=== PATIENT | female | born 1955 | race Caucasian/White ===

== ENCOUNTER → 2020-03-27 16:42 | Outpatient (CLI) | payer OTHER, SELFPAY ==
--- NOTE | ~2020-03-27 | MM_ITS ---
EXAMINATION: MM screening [facility] BI w jimmy HISTORY: Screening mammogram TECHNIQUE: Craniocaudal and mediolateral oblique 3-D tomosynthesis images were obtained and synthetic 2-D images were generated. CAD analysis was submitted and interpreted. COMPARISON: 12/28/2018, 02/19/2011 bilateral digital screening mammogram examinations BREAST PARENCHYMAL COMPOSITION: The breasts are heterogeneously dense, which may obscure small masses . FINDINGS: Questionable new approximately 3.5 mm opacity versus composite shadowing in the inferior nieves bareolar area of the right breast on MLO view; recommend diagnostic right mammogram, with ultrasound if required.. Otherwise there is no evidence of suspicious mass, calcification, or architectural distortion to sugg est malignancy in either breast. There has been no suspicious interval change. IMPRESSION: 1. Questionable 3.5 mm mass overlying inferior subareolar area of right breast on MLO view 2. Diagnostic right mammogram is recommended, with ultrasound if required BI-RADS Category 0: Incomplete: Needs additional imaging evaluation. Reviewed, dictated and finalized at location A.
== END ==
PROVIDERS: PCP Internal Medicine; Visit Provider Obstetrics & Gynecology
DX: Z12.31 Encounter for screening mammogram for malignant neoplasm of breast (principal); R92.8 Other abnormal and inconclusive findings on diagnostic imaging of breast
CPT/HCPCS: 77063; 77067

== ENCOUNTER → 2020-04-12 08:49 | Outpatient (CLI) | payer OTHER, SELFPAY ==
--- NOTE | ~2020-04-12 | MMUS_ITS ---
EXAMINATION: MM diagnostic mammo unilat RT, US breast RT complete HISTORY: Follow-up right breast asymmetry TECHNIQUE: Additional 3-D tomosynthesis images of the right breast were performed and synthetic 2-D i mages were generated. CAD analysis was submitted and interpreted. High resolution right breast ultras ound was performed. COMPARISON: 03/27/2020 BREAST PARENCHYMAL COMPOSITION: The breasts are heterogenously dense, which may obscure small masses. FINDINGS: MAMMOGRAPHIC FINDINGS: The focal area of asymmetry is not apparent with spot compression views, likely superimposed fibrogla ndular tissue. No discrete mass, architectural distortion or suspicious calcifications. ULTRASOUND: Normal heterogeneous echotexture without focal solid or cystic mass. IMPRESSION: 1. No mammographic or sonographic evidence for malignancy in the right breast. 2. Routine yearly screening mammogram and regular clinical breast examination are recommended. BI-RADS Category 1: Negative Reviewed, dictated and finalized at location A. 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 No mammographic or sonographic evidence for malignancy in the right breast. 2. Routine yearly screening mammogram and regular clinical breast examination a re recommended. BI-RADS Category 1: Negative
== END ==
PROVIDERS: PCP Internal Medicine; Visit Provider Obstetrics & Gynecology
DX: R92.8 Other abnormal and inconclusive findings on diagnostic imaging of breast (principal)
CPT/HCPCS: 76641; 77065

== ENCOUNTER → 2021-05-15 13:46 | Outpatient (CLI) | payer OTHER, SELFPAY ==
--- NOTE | ~2021-05-15 | MM_ITS ---
EXAMINATION: MM screening [facility] BI w jimmy HISTORY: Screening TECHNIQUE: Craniocaudal and mediolateral oblique 3-D tomosynthesis images were obtained and synthetic 2-D images were generated. CAD analysis was submitted and interpreted. COMPARISON: Comparison to multiple prior studies sequentially, with oldest reviewed study dated 12/28. BREAST PARENCHYMAL COMPOSITION: Breast composed of scattered areas of fibroglandular density FINDINGS: There is no evidence of suspicious mass, calcification, or architectural distortion to sugg est malignancy in either breast. There has been no suspicious interval change. IMPRESSION: 1. No mammographic evidence of malignancy. 2. Recommend routine screening mammography in one year. BI-RADS Category 1: Negative.. Reviewed, dictated and finalized at location A. 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
== END ==
PROVIDERS: PCP Internal Medicine; Visit Provider Obstetrics & Gynecology
DX: Z12.31 Encounter for screening mammogram for malignant neoplasm of breast (principal)
CPT/HCPCS: 77063; 77067

== ENCOUNTER 2022-01-06 10:14 | Emergency (ER) | payer OTHER, SELFPAY ==
--- NOTE | ~2022-01-06 | XR_ITS ---
EXAMINATION: XR foot RT min 3V DATE: 01/06/2022 10:29 INDICATION: Lateral sided right foot pain and swelling post fall down stairs TECHNIQUE: Dorsoplantar, two oblique and lateral views of the right foot were obtained. COMPARISON: None. FINDINGS: Minimally displaced transverse fracture across the base of the right fifth metatarsal with up to 2 mm maximal separation along the fracture plane. The fractures likely intra-articular extending towards the junction of the articular surfaces of the fifth tarsal metatarsal joint and the articulation with the base of the fourth metatarsal. Alignment remains essentially anatomic. No other fractures identi fied. 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 Small plan tar calcaneal spur. Soft tissue swelling at the lateral midfoot overlying the fracture. IMPRESSION: 1. Minimally displaced likely intra-articular fracture at the base of the right fifth metatarsal. Reviewed, dictated and finalized at location A.
[2022-01-06 10:34] VITALS: BP 123/65; PULSE 74; RESP 20; TEMP 36.6; O2SAT 100
--- NOTE | 2022-01-06 11:32 | ED.LOWEXIN ---
HPI - Extremity Injury (Lower) General Chief Complaint: Extremity Injury, Lower Stated Complaint: right foot injury Time Seen by Provider: 01/06/22 10:59 Source: patient Mode of arrival: wheelchair Limitations: no limitations History of Present Illness HPI Narrative: This is a 66-year-old female that presents to the emergency department for right foot pain after an injury just prior to arrival. Reports she tripped going down the stairs and rolled the foot. Reports pain and swelling at the lateral aspect of the right foot. Denies any other injuries or trauma. Denies decreased range of motion or numbness. Related Data Allergies Allergy/AdvReac Type Severity Reaction Status Date / Time No Known Allergies Allergy Unverified 07/23/18 08:37 Review of Systems Review of Systems: CONSTITUTIONAL: Denies fever MUSCULOSKELETAL: Reports joint pain, and myalgia. NEUROLOGIC: Denies numbness All systems reviewed & are unremarkable except as noted in HPI and below PMFSH Past Medical History Medical History (Updated 01/06/22 @ 12:38 by Tori Saldana PA-C) History of depression Social History Social History (Updated 01/06/22 @ 11:33 by Tori Saldana PA-C) Substance use: never Exam Narrative: GENERAL: Well-appearing, well-nourished, and in no acute distress. HEAD: Normocephalic, atraumatic. EYES: EOMI. EXTREMITIES: Normal range of motion. Mild edema about the right foot over the fifth metatarsal. Normal DP pulse. Normal sensation SKIN: Warm, dry, no rash. NEURO: No focal deficits. Alert and oriented x3. PSYCH: Normal mood and affect Course Consultations Consultation #1: Spoke with Dr. Moncada about patient and work-up. Date: 01/06/22 Vital Signs Vital signs: Vital Signs Temperature 97.8 F 01/06/22 10:34 Pulse Rate 74 01/06/22 10:34 Respiratory Rate 20 01/06/22 10:34 Blood Pressure 123/65 01/06/22 10:34 Pulse Oximetry 100 01/06/22 10:34 Oxygen Delivery Room Air 01/06/22 10:34 Temperature 97.8 F 01/06/22 10:34 Pulse Rate 74 01/06/22 10:34 Respiratory Rate 20 01/06/22 10:34 Blood Pressure 123/65 01/06/22 10:34 Pulse Oximetry 100 01/06/22 10:34 Oxygen Delivery Room Air 01/06/22 10:34 Procedures Orthopedic Splinting/Casting Injury #1: Splinting/Casting Date: 01/06/22 Splinting/Casting Time: 12:35 Side: right Lower Extremity Injury Location: foot Lower Extremity Immobilizer: posterior splint Splint: customized in ED OCL: short leg Pre-Procedure Neuro Vascular Exam: normal Post-Procedure Neuro Vascular Exam: normal MDM - Extremity Injury (Lower) MDM Narrative Medical decision making narrative: Patient presents to the emergency department for right foot pain after an injury this morning. Patient is neurovascularly intact. Right foot x-ray shows a minimally displaced likely intra-articular fracture at the base of the right fifth metatarsal. Spoke with Dr. Moncada about patient and work-up. Patient will be placed in short leg posterior, she has crutches at home. Is to follow-up in clinic. Patient is stable and felt appropriate for further outpatient evaluation. She was given warnings to return to the ER Imaging Data Radiologist's impression: ITS Impressions Foot X-Ray 01/06/22 10:32 IMPRESSION: 1. Minimally displaced likely intra-articular fracture at the base of the right fifth metatarsal. Critical Care Time Critical Care Time Critical Care Time: No Discharge Plan Discharge Clinical Impression: Closed nondisplaced fracture of fifth right metatarsal bone Qualifiers: Encounter type: initial encounter Qualified Code(s): S92.354A - Nondisplaced fracture of fifth metatarsal bone, right foot, initial encounter for closed fracture Patient Disposition: Home, Self-Care Condition: Stable Instructions: Foot Fracture in Adults (ED) Additional Instructions: Return
[2022-01-06] MEDS: HYDROcodone/acetaminophen (*CRX) 5-325 MG TABLET 1 TAB PO (11:46)
[2022-01-06 13:00] VITALS: BP 132/62; PULSE 68; RESP 14; O2SAT 99
== END 2022-01-06 13:00 | disposition home or self-care (01) ==
PROVIDERS: Emergency Provider Emergency Medicine; PCP Internal Medicine
DX: S92.351A Displaced fracture of fifth metatarsal bone, right foot, initial encounter for closed fracture (principal); W10.9XXA Fall (on) (from) unspecified stairs and steps, initial encounter
CPT/HCPCS: 29515; 73630; 99284; A9270

== ENCOUNTER → 2022-09-09 12:10 | Outpatient (CLI) | payer OTHER, SELFPAY ==
--- NOTE | ~2022-09-09 | MM_ITS ---
EXAMINATION: MM screening [facility] BI w jimmy HISTORY: Screening mammogram TECHNIQUE: Craniocaudal and mediolateral oblique 3-D tomosynthesis images were obtained and synthetic 2-D images were generated. CAD analysis was submitted and interpreted. COMPARISON: 05/15/2021 bilateral screening mammogram 04/12/2020 diagnostic right mammogram and complete right breast ultrasound examination 03/27/2020, 12/28/2018, 02/19/2011 bilateral screening mammogram examinations BREAST PARENCHYMAL COMPOSITION: The breasts are heterogeneously dense, which may obscure small masses . FINDINGS: Stable appearing bilateral axillary and axillary tail lymph nodes. There is no evidence of suspicious mass, calcification, or architectural distortion to suggest malignancy in either breast. T here has been no suspicious interval change. IMPRESSION: 1. No mammographic evidence of malignancy. 2. Recommend routine screening mammography in one year. BI-RADS Category 1: Negative Reviewed, dictated and finalized at location A.
== END ==
PROVIDERS: PCP Internal Medicine; Visit Provider Nurse Practitioner
DX: Z12.31 Encounter for screening mammogram for malignant neoplasm of breast (principal)
CPT/HCPCS: 77063; 77067

== ENCOUNTER → 2022-11-13 10:01 | Outpatient (CLI) | payer OTHER, SELFPAY ==
--- NOTE | ~2022-11-13 | DEXA_ITS ---
Bone Density Report Name: ALEXIA KRUEGER Age: 67 Sex: Female Ethnicity: White Date of : 1955 Indication: osteopenia; postmenopausal Referring Provider: JOSE LUIS, ELLE Study: Bone densitometry was performed. Exam Date: November 13, 2022 Accession number: [id number] Bone Density: Region BMD T-score Z-score Classification AP Spine (L1-L4) 0.853 -1.8 0.0 Osteopenia Femoral Neck (Left) 0.745 -0.9 0.6 Normal Total Hip (Left) 0.951 0.1 1.3 Normal Femoral Neck (Right) 0.712 -1.2 0.3 Osteopenia Total Hip (Right) 0.910 -0.3 1.0 Normal Total Hip Mean 0.931 -0.1 1.2 Normal World Health Organization criteria for BMD impression classify patients as: Normal (T-score at or above -1.0), Osteopenia (T-score between -1.0 and -2.5), or Osteoporosis (T-score at or below -2.5). 10-year Fracture Risk(1): Major Osteoporotic Fracture 8.3% Hip Fracture 0.7% Reported Risk Factors: [place] (), Neck BMD=0.712, BMI=26.3 (1) FRAX(R) Version 3.08. Fracture probability calculated for an untreated patient. Fracture probability may be lower if the patient has received treatment. Previous Exams: Region Exam Age BMD T-score BMD Change BMD Change Date g/cm2 vs Baseline vs Previous AP Spine(L1-L4) 11/13/2022 67 0.853 -1.8 -0.177 -0.005 12/28/2018 63 0.858 -1.7 -0.172 -0.172 05/12/2008 52 1.030 -0.2 Total Hip(Left) 11/13/2022 67 0.951 0.1 -0.068 -0.003 12/28/2018 63 0.954 0.1 -0.065 -0.065 05/12/2008 52 1.019 0.6 Total Hip(Right) 11/13/2022 67 0.910 -0.3 -0.071 -0.022 12/28/2018 63 0.932 -0.1 -0.048 -0.048 05/12/2008 52 0.980 0.3 *Denotes significance at 95% confidence level, LSC for AP Spine = 0.022 g/cm2, LSC for Total Hip = 0.027 g/cm2 Clinical Information Provided by Patient: Has used the following medications: Vitamin D, Calcium Patient maximum height was 62.25 Menopause Age: 52 Does not regularly consume dairy products Drinks caffeinated beverages Onset of menses at age 16 Number of children 0 Impression: The patient has low bone mass, based on the Total Spine T-score. The patient has an estimated ten-year risk of hip fracture of 0.7% and an estimated ten-year risk of major fracture of 8.3%, based on the WHO FRAX algorithm. No significant bone loss was observed. Discussion: BONE DENS
== END ==
PROVIDERS: PCP Internal Medicine; Visit Provider Nurse Practitioner
DX: M85.88 Other specified disorders of bone density and structure, other site (principal); M85.851 Other specified disorders of bone density and structure, right thigh
CPT/HCPCS: 77080

== ENCOUNTER 2024-05-11 14:40 | Outpatient (CLI) | payer OTHER, SELFPAY ==
--- NOTE | ~2024-05-11 | MM_ITS ---
EXAMINATION: MM screening [facility] BI w jimmy HISTORY: Screening TECHNIQUE: Craniocaudal and mediolateral oblique 3-D tomosynthesis images were obtained and synthetic 2-D images were generated. CAD analysis was submitted and interpreted. COMPARISON: Comparison to multiple prior studies sequentially, with oldest reviewed study dated 12/28. BREAST PARENCHYMAL COMPOSITION: Not dense: There are scattered areas of fibroglandular density. FINDINGS: There is no evidence of suspicious mass, calcification, or architectural distortion to sugg est malignancy in either breast. There has been no suspicious interval change. IMPRESSION: 1. No mammographic evidence of malignancy. 2. Recommend routine screening mammography in one year. BI-RADS Category 1: Negative Reviewed, dictated and finalized at location B. 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
== END 2024-05-11 14:41 | disposition home or self-care (01) ==
LOC: MICIMG 14:41
PROVIDERS: PCP Obstetrics & Gynecology Gynecology; Visit Provider Internal Medicine
DX: Z12.31 Encounter for screening mammogram for malignant neoplasm of breast (principal)
CPT/HCPCS: 77063; 77067

== ENCOUNTER 2024-08-24 08:39 | Outpatient (CLI) | payer OTHER, SELFPAY ==
--- NOTE | ~2024-08-24 | XR_ITS ---
XR shoulder LT min 2V Ordering provider: Preet Moncada MD History: . M25.512 - Pain in left shoulder . Comparison: None. FINDINGS: BONES: No acute fracture or dislocation. JOINT SPACES: The acromioclavicular joint is normal. The glenohumeral joint is normal. SOFT TISSUES: Normal. IMPRESSION: No acute osseous abnormality left shoulder. Reviewed, dictated and finalized at location A.
== END 2024-08-24 08:40 | disposition home or self-care (01) ==
PROVIDERS: PCP Nurse Practitioner Family; Visit Provider Orthopaedic Surgery
DX: M25.512 Pain in left shoulder (principal)
CPT/HCPCS: 73030

== ENCOUNTER 2025-03-21 01:10 | Day surgery (SDC) | payer OTHER, SELFPAY ==
--- OUTSIDE RECORDS SUMMARY | 2013-03-16 08:00 | XMS_ITS | Continuity of Care Document ---
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 Name Role Phone Siddhartha Hinds MD Unavailable Unavailable Allergies, Adverse Reactions, Alerts Substance Reaction Status Criticality No Known allergies Medications Medication Instructions Dosage Effective Dates (start - stop) Status Comments Restasis 0.05 % Eye Dropperette instill 1 drop by ophthalmic route every 12 hours into affected eye(s) 1.00 drop - Active doxycycline monohydrate 50 mg capsule take 1 capsule (50MG) by oral route every 12 hours 50 MG - Active Artificial Tears Eye Drops - Active Procedures Procedure Date Office/outpatient Visit, Est Office/outpatient Visit, Est Eye Exam, New Patient Advance Directives Directive Yes / No Effective Date File Name Resuscitation Not Answered N/A N/A Life Support Not Answered N/A N/A Intubation Not Answered N/A N/A Antibiotics Not Answered N/A N/A IV Fluid Support Not Answered N/A N/A Tube Feed Not Answered N/A N/A Other Directive N/A N/A WARNING:The information contained in this section is historical and is provided for information only and does not constitute a legal document or any assurance that the information is still accurate. Please verify the information with the morales of the legal document before using it for clinical purposes. Encounters Encounter Description Practice Location Reason(s) For Visit Diagnoses Date Provider Providers Copied on Encounter Office[facility]pa tient [facility], [facility] [address] [place] [address] [address], [place], [place], [id number], tel:[phone] [place] Professional ROSACEATEAR FILM INSUFFIC NOS 3 Guzman Carl. [address], [address], [place], [place], [id number], . tel:[phone] Referring Provider: Siddhartha Sagastume, [address], [place], [address] . tel:[phone] Office/outpa tient Visit, Est [facility], [id number] [place] [address] [address], [place], [place], [id number], tel:[phone] SEC [place] Professional CUPPING OF OPTIC DISCROSACEATEA R FILM INSUFFIC NOSPOST-PROC ST EYE/ADN NEC 3 Guzman Carl. [address], [facility], [place], [place], [id number], . tel:[phone] Referring Provider: Siddhartha Sagastume, [address], [place], [address] . tel:[phone] [facility], [address], [place], [place], [id number], tel:[phone] SEC [place] Professional ROSACEACUPPING OF OPTIC DISCLATTICE DEGENERATION 3 Ortizjustin Siddhartha. [address], [place], [place], [address], . tel:[phone] Referring Provider: Siddhartha Sagastume, [address], [place], [address] . tel:[phone] Family History Family Member Type Diagnosis Age At Onset Mother Problem (finding) diabetes melli tus in first degree relative Payers Payer name Insurance type Covered democrat ID Nataliia guzmán(s) en-Gauge SOI CI [id number] Social History Type Description Quantity Date Captured Comments Alcohol Use Details Caffeine Use Details 2 cups per day Tobacco Use Status No Information Smoking Status Never smoker Sex Female Chief Complaint And Reason For Visit No Information Reason For Referral Reason For Referral No Information History Of Present Illness Encounter Date Complaint History Of Prese nt Illness No Information Functional Status Date Functional Assessmen t No Information Instructions Date Instruction Additional Infor mation rosacea with mgd-imp roved - cont doxy for 1 more mth then try stoppingcontinue HMP and fish oil caps Related to ROSACEA - 4mths-if doing ok could try restasis qd as maintanence dose Related to TEAR FILM INSUFFIC NOS WOODROW-improved with re stasis - restasis bid ouAT prn Related to TEAR FILM INSUFFIC NOS - pachs on rtc Related to 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 for Related to See impression: general plan General plan -Acne R osacea -Glaucomatous Cupping of the Optic Disc -LATTICE DEGENERATION - hmp and fish oildoxy 50 qd 30 with 2refills Related to See impression: general plan Assessments Type Assessment Date No Information Patient Care Teams Name Effective Dates (start - stop) Status Members No Information
[2025-03-10 14:29] VITALS: BMI 25.4
--- OUTSIDE RECORDS SUMMARY | 2025-03-21 01:13 | XMS_ITS | Clinical Summary ---
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 Role Phone Unavailable Primary Care Provider Unavailabl e Allergies No known active allergies Medications valACYclovir (VALTREX) 1 gram tablet Two tablets twice daily for 24 hours at the 1st sign of cold sore 12 tablet 7 01/09/2021 Active Active Problems Problem Noted Date Diagnosed Date Vitamin D deficiency 10/19/2017 Immunizations Immunization Administration Dates Next Due Influenza, Quadrivalent, Maribeth l Culture-based MDCK, Preservative Free, Antibiotic Free, Intramuscular 02/23/2020 Influenza, Quadrivalent, Spl it, Preservative Free, Intramuscular 03/19/2021,03/31/2019,03/10/2018 Influenza, Split 04/11/2010 Influenza, Trivalent, IM (MDV) 5,03/22/2013,03/08/2012,04/06,03/31/2008 Influenza, Trivalent, Preser vative Free, Intramuscular 04/07/2017,04/25/2015 Influenza, Trivalent, Recomb inant, Egg Free, Preservative Free, Antibiotic Free, IM (FLUBLOK) 03/28/2014 Influenza, Unspecified 01/09/2021(Deferr ed: Patient Refused),03/31/2019 Moderna SARS-CoV-2 Monovalen t Vaccination (12+ YRS) 05/01/2021,07/18/2020,06/20/2020 Td, adsorbed 10/19/2017 Tdap 03/29/2007 ZOSTER Recombinant 03/11/2021,01/09/2021 Surgical History Surgery Date Site/Laterality Comments LASIK Lasik eye surgery OTHER SURGICAL HISTORY heart cath 8-2010 normal Medical History Medical History Date Comments 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 Hx Other Medical 2010 heart cath Family History Medical History Relation Name Comments Depression Brother 2 Depression; Diabetes Mother Diabetes mellit us; Hypertension Mother Hypertension; Diabetes Other 1 Family history of Diabetes mellitus; Hypertension Other 2 Family history of Hypertension; Cancer Neg Hx Cancer -; Relation Name Status Comments Brother 1 Alive Brother 2 Mother Other 1 Other 2 Social History Tobacco Use Types Packs/Day Years Used Date Smoking Tobacco: Never Smokeless Tobacco: Never Tobacco Cessation:Counseling Given: No Alcohol Use Standard Drinks/Week Comments Yes 0 (1 standard drink = 0.6 oz pur e alcohol) PHQ-2 Answer Date Recorded PHQ-2 Total Score (If total score is 3 or more points, staff should administer the PHQ-9) 0 03/19/2021 Comments Unknown Sex and Gender Information Value Date Recorded Sex Assigned at Not on file 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 Gender Identity Female 01/03/2021 8:13 AM CDT Sexual Orientation Straight 01/03/2021 8: 13 AM CDT Obstetrics History Last Filed Vital Signs Vital Sign Reading Time Taken Comments Blood Pressure 110/60 03/19/2021 1:08 PM CDT Pulse 78 03/19/2021 1:08 PM CDT Temperature - - Respiratory Rate 16 03/19/2021 1:08 PM CDT Oxygen Saturation 99% 03/11/2021 8:09 AM CDT Inhaled Oxygen Concentration - - Weight 62.1 kg (137 lb) 03/19/2021 1:08 PM CDT Height 159.4 cm (5' 2.75) 03/19/2021 1:08 PM CD T Body Mass Index 24.46 03/19/2021 1:08 PM CDT Plan of Treatment Health Maintenance Due Date Last Done Comments Osteoporosis Screening-Bone Density Scan 1955 Hepatitis B Screening 11/01/1975 Pneumococcal vaccine 65+ (1 of 1 - PCV) 11/01/2007 Colon Cancer Screening-Colonoscopy 01/24/2019 01/24/2009, 01/24/2009 Depression Screening 03/19/2022 03/19/2021, 03/11/2021, 01/09/2021, Additional history exists Fall Risk Assessment 03/19/2022 03/19/2021, 03/11/2021, 01/09/2021, Additional history exists Breast Cancer Screening-Mammogram 05/15/2022 05/15/2021, 03/27/2020, 08/23/2014, Additional history exists Well Visit 65+ 2022 01/09/2021, 12/07, 12/29/2018, Additional history exists Covid-19 Vaccine (4 - 2024-2 6 season) 2025 05/01/2021, 07/18/2020, 06/20/2020 Influenza Vaccine (#1) 2025 , 02/23/2020, 03/31/2019, Additional history exists DTaP/Tdap/Td Vaccine (3 - Td or Tdap) 10/20/2027 10/19/2017, 03/29/2007 Colon Cancer Screening-CT Colonography Discontinued 01/24/2009, 01/24/2009 Colon Cancer Screening-DNA Stool Discontinued 01/25/20, 01/24/2009 Colon Cancer Screening-FIT Discontinued 01/24/2009, Colon Cancer Screening-Sigmoidoscopy Discontinued 01/24/2009, 01/24/2009 Hepatitis C Screening Completed 09/17/2017 Zoster Vaccine Completed 03/11/2021, 01/09/2021 Procedures Procedure Name Priority Date/Time Associated Diagnosis Comments SCREENING MAMMOGRAM Schedule Routine, Read Routine (OP Routine) 05/15/2021 HEPATITIS C ANTIBODY Routine 09/17/2017 8:20 AM CDT COLONOSCOPY Routine 01/24/2009 from Last 3 Months or Most Recently Relevant to Health Maintenance Results * Screening Mammogram (05/15/2021) Anatomical Region Laterality Modality Breast N/A Mammography us Historical Provider IMG MAMMO PROCEDURES Sandra l Result * Hepatitis C antibody (09/17/2017 8:20 AM CDT) Hep C Ab NON-REACTI VE NON-REACTI VE [facility] [place] SIGNAL TO CUT-OFF 0.01 <1.00 [facility] [place] 09/17/2017 8:20 AM CDT 09/17/2017 8:22 AM CDT Narrative [facility] - 09/18/2017 10:01 AM CDT FASTING:YES FASTING: YES Resulting Agency Comment Performing Organization Information: Site ID: [id number] Name: [facility] Address: [address] [address] Director: Fracisco George D.O., MPH Brady Cárdenas MD LAB MICROBIOLOGY - GENERAL ORD ERABLES Final Result Performing Organization Address City/State/[facility] Co de Phone Number [facility] * Colonoscopy (01/24/2009) Anatomical Region Laterality Modality Other us Historical Provider ENDOSCOPY PROCEDURES Sandra l Result from Last 3 Months or Most Recently Relevant to Health Maintenance [place] [address] [facility] [employer] PPO
--- OUTSIDE RECORDS SUMMARY | 2025-03-21 01:13 | XMS_ITS | Encounter Summary ---
Author Organization [facility] Address [address] [place] [address] [place] [id number] Care Team Providers Care Bank Consultant Name Role Phone Brady Cárdenas MD Primary Care Provider [phone] Brady Cárdenas MD Primary Care Provider [phone] Reason for Referral * Diagnostic Imaging (Routine) - Closed Specialty Diagnoses / Procedures Referred By Contac t Referred To Contact Procedures Screening Mammogram 2D Bilateral [facility] Health Information Management [address] [place] [id number] Phone: tel: fax: Referral ID Status Reason Start Date Expiration Date Visits Re quested Visits Authorized [id number] Closed 12/16/2018 06/26/2020 1 1 Encounter Details Date Type Department Care Team (Late st Contact Info) Description 08/23/2014 Orders Only [facility] Health Information Management [address] [place] [phone] Brady Cárdenas MD [address] [place] [address] [address] [place] [address] Social History Tobacco Use Types Packs/Day Years Used Date Smoking Tobacco: Never Alcohol Use Standard Drinks/Week Comments Yes 0 (1 standard drink = 0.6 oz pur e alcohol) Comments Unknown Sex and Gender Information Value Date Recorded Sex Assigned at Not on file Legal Sex Female 10:37 AM [employer] Gender Identity Female 01/03/2021 8:13 AM CDT Sexual Orientation Straight 01/03/2021 8: 13 AM CDT documented as of this encounter Plan of Treatment Not on file documented as of this encounter Procedures Procedure Name Priority Date/Time Associated Diagnosis Comments SCREENING MAMMOGRAM 2D BILATERAL Schedule Routine, Read Routine (OP Routine) 08/23/2014 documented in this encounter Results * Screening Mammogram 2D Bilateral (08/23/2014) Anatomical Region Laterality Modality Breast Bilateral Mammography us Historical Provider MD [facility]ED[facility] Sandra l Result documented in this encounter Visit Diagnoses Not on filedocumented in this encounter Care Teams Bank Consultant Relationship Specialty Start Date End Date Brady Cárdenas MD PCP - General 09/05/16 11/20/21 Brady Cárdenas MD PCP - General 06/06/13 09/04/16 documented as of this encounter
[2025-03-21 10:31] VITALS: BP 138/84; PULSE 89; RESP 20; TEMP 36.4; O2SAT 99
[2025-03-21] MEDS: LACTATED RINGERS 1,000 ML 150 ML IV CONT (10:40)
--- NOTE | 2025-03-21 10:47 | WPDANESEPPF ---
Anes - Initial Pre Proc Eval Procedure: Operation Date: 03/21/25 12:30 Proposed Procedures p Screening Colonoscopy - Javad Duke MD Date/Time: 03/21/25 10:47 Surgeon: Javad Duke MD Pre Op Diagnosis: Screening/Positive cologuard Patient Data Age: 69 Gender: F Height: 1.57 m Weight: 59.9 kg Last Vital Signs Temp 36.4 C 03/21/25 10:31 Pulse 89 03/21/25 10:31 Resp 20 03/21/25 10:31 BP 138/84 03/21/25 10:31 Pulse Ox 99 03/21/25 10:31 O2 Del Method Room Air 03/21/25 10:31 Allergies Allergy/AdvReac Type Severity Reaction Status Date / Time No Known Allergies Allergy Verified 03/21/25 10:30 Home Medications ?Medication ?Instructions ?Recorded ?Confirmed ?Type pravastatin 20 mg tablet 20 mg PO DAILY 07/19/24 03/21/25 History Patient hx anesthesia problems: none Family hx anesthesia problems: none Results Review: All pre-operative results and documents have been reviewed as part of the pre-operative evaluation. [facility] Past Medical History Medical History H/O cardiovascular stress test (~2009) Surgical History Surgical History History of cataract surgery Family History Family History Mother Hypertension Diabetes mellitus Social History Social History Smoking status: Never smoker Alcohol intake: current Drinks per week: 4 Substance use: never Substance use type: does not use Do You Feel Safe in your Home?: Yes Lack of Transportation: No Lack of Food: Never True Current Housing: I Have Housing Concerned About Future Housing: No Difficulty Paying Gas/Electric Bills: No Difficulty Paying for Meds: No Currently Unemployed: No Education: High School Diploma/GED Difficulty w/ Childcare or Family Care: No Living arrangements: with family Additional living arrangements comments: with sp Occupation/Education: retired Gender identity (if verbalized by the patient): Female Spiritual care concerns: No Agree to blood products: Yes Anes - Eval Final PreProcedure Day of Procedure 03/21/25 10:47 Patient weight: normal Heart: regular rate and rhythm Lungs: clear to auscultation and normal air movement Airway: Mallampati scale class II Neurological: alert and oriented Last oral intake: >/= 8 hours ASA classification: II Emergent: no Anesthetic plan: proceed Anesthesia type and monitoring: general GIVS and standard monitoring Results Review: All pre-operative results and documents have been reviewed as part of the pre-operative evaluation. Informed Consent: The patient's anesthetic plan and its attendant risks and benefits were discussed with the patient/family/POA. Questions were solicited and answers provided to the satisfaction of the patient/family/POA.
--- NOTE | 2025-03-21 11:15 | PM.HPGS ---
History of Present Illness History of Present Illness Consent: Risks, benefits, and alternatives have been discussed and questions answered. Patient agrees to proceed with procedure. Chief complaint: Screening/Positive cologuard Narrative: Soledad Santana is a 69 year old female here with + cologuard, last colonoscopy 17 years ago. Review of Systems Review of Systems: All systems reviewed & are unremarkable except as noted in HPI and below PMFSH Past Medical History Medical History (Updated 03/21/25 @ 11:27 by Javad Duke MD) Positive colorectal cancer screening using Cologuard test H/O cardiovascular stress test (~2009) Surgical History Surgical History History of cataract surgery Family History Family History Mother Hypertension Diabetes mellitus Social History Social History Smoking status: Never smoker Alcohol intake: current Drinks per week: 4 Substance use: never Substance use type: does not use Do You Feel Safe in your Home?: Yes Lack of Transportation: No Lack of Food: Never True Current Housing: I Have Housing Concerned About Future Housing: No Difficulty Paying Gas/Electric Bills: No Difficulty Paying for Meds: No Currently Unemployed: No Education: High School Diploma/GED Difficulty w/ Childcare or Family Care: No Living arrangements: with family Additional living arrangements comments: with sp Occupation/Education: retired Gender identity (if verbalized by the patient): Female Spiritual care concerns: No Agree to blood products: Yes Meds Home Medications and Allergies Home Medications ?Medication ?Instructions ?Recorded ?Confirmed ?Type pravastatin 20 mg tablet 20 mg PO DAILY 07/19/24 03/21/25 History Allergies Allergy/AdvReac Type Severity Reaction Status Date / Time No Known Allergies Allergy Verified 03/21/25 10:30 Vital Signs Vital Signs - 24 hr 03/21/25 10:31 Temperature 97.6 F Pulse Rate 89 Respiratory Rate 20 Blood Pressure 138/84 Pulse Oximetry 99 Oxygen Delivery Room Air Exam Const: General: comfortable and no acute distress HENMT: Face/Nose/Sinus: Normal nares present Eyes: General: appearance normal, both eyes and all related structures Neck: Neck: no JVD Resp: Auscultation: clear to auscultation bilaterally Cardio: Rate: regular rate Rhythm: regular rhythm GI: Inspection: non-distended GI Palp: Yes Soft to palpation Skin: General skin exam: normal color Extrem: General: normal to inspection Psych: Mental Status: mental status grossly normal Assessment and Plan Assessment and plan (1) Positive colorectal cancer screening using Cologuard test: Code(s): R19.5 - Other fecal abnormalities Status: Acute Assessment and Plan: colonoscopy
[2025-03-21 11:28] VITALS: BP 101/46; PULSE 86; RESP 25; O2SAT 99
[2025-03-21 11:38] VITALS: BP 120/60; PULSE 79; RESP 20; O2SAT 100
[2025-03-21 11:48] VITALS: BP 112/74; PULSE 78; RESP 18; O2SAT 100
== END 2025-03-21 11:55 | disposition home or self-care (01) ==
PROVIDERS: PCP Nurse Practitioner Family; Visit Provider Internal Medicine Gastroenterology
PROC: 0DJD8ZZ Inspection of Lower Intestinal Tract, Via Natural or Artificial Opening Endoscopic (ICD-10-PCS; CPT 45378; principal; 2025-03-21 12:30)
DX: R19.5 Other fecal abnormalities (principal); K64.8 Other hemorrhoids; Z98.890 Other specified postprocedural states
CPT/HCPCS: 45378; J2003; J2704; J7120